=== PATIENT | male | born 1930 | race Caucasian/White ===

== ENCOUNTER 2018-05-09 09:21 | Inpatient (IN) | payer OTHER ==
[2018-05-09] MEDS ORDERED: LACTATED RINGER'S 1,000 ML IV (11:30)
[2018-05-09] MEDS ORDERED: LIDOCAINE 2% (SDV) 5 ML INJ (13:25)
[2018-05-09] MEDS ORDERED: PROPOFOL 20 ML (13:25)
[2018-05-09] MEDS ORDERED: ONDANSETRON 4 MG INJ (13:26)
[2018-05-09] MEDS ORDERED: ONDANSETRON 4 MG INJ IV (13:30)
[2018-05-09] MEDS ORDERED: MIDAZOLAM 1 MG/ML 2 ML INJ IV (13:30)
[2018-05-09] MEDS ORDERED: EPHEDrine SULFATE 50 MG/5 ML SYG IV (13:30)
[2018-05-09] MEDS ORDERED: METOCLOPRAMIDE 10 MG INJ IV (13:30)
[2018-05-09] MEDS ORDERED: MEPERIDINE 25 MG INJ IV (13:30)
[2018-05-09] MEDS ORDERED: OXYCODONE/ACETAMINOPHEN (5/325) TAB PO ×2 (13:30)
[2018-05-09] MEDS ORDERED: LABETALOL HCL 20MG INJ IV (13:30)
[2018-05-09] MEDS ORDERED: HYDROmorphONE 1 MG/5 ML IV SYRINGE IV ×3 (13:30)
[2018-05-09] MEDS ORDERED: FENTAnyl 50 MCG/ML VIAL IV ×2 (13:30)
[2018-05-09] MEDS ORDERED: hydrALAzine 20 MG INJ IV (13:30)
[2018-05-09] MEDS: CIPROFLOXACIN 400MG/D5W 200 ML IVPB (13:39)
[2018-05-09] MEDS ORDERED: FUROSEMIDE 20 MG INJ (14:21)
[2018-05-09] MEDS ORDERED: MAGNESIUM HYDROXIDE 30ML CUP PO (15:30)
[2018-05-09 15:41] LABS: ADD MAN DIFF? NO
[2018-05-09 15:42] LABS: BASOPHILS % 0.2 % (0.0-2.0); EOSINOPHILS # 0.1 10^3/ul (0.0-0.5); EOSINOPHILS % 1.6 % (0.0-7.0); HEMATOCRIT 33.7 % (42.0-52.0); HEMOGLOBIN 10.7 g/dl (14.0-18.0); LYMPHOCYTES # 1.2 10^3/ul (0.8-2.9); LYMPHOCYTES % 27.8 % (15.0-51.0); MEAN CORPUSCULAR HEMOGLOBIN 24.9 pg (29.0-33.0); MEAN CORPUSCULAR HGB CONC 31.8 g/dl (32.0-37.0); MEAN CORPUSCULAR VOLUME 78.6 fl (82.0-101.0); MEAN PLATELET VOLUME 9.2 fl (7.4-10.4); MONOCYTE # 0.2 10^3/ul (0.3-0.9); MONOCYTES % 5.3 % (0.0-11.0); NEUTROPHIL # 2.8 10^3/ul (1.6-7.5); NEUTROPHILS % 64.9 % (39.0-77.0); PLATELET COUNT 173 10^3/UL (140-415); RED BLOOD COUNT 4.29 10^6/ul (4.70-6.10); RED CELL DISTRIBUTION WIDTH 15.9 % (11.5-14.5)
[2018-05-09 15:42] LABS: WHITE BLOOD COUNT 4.3 10^3/ul (4.8-10.8)
[2018-05-09 15:56] LABS: HOLD TRANSMISSIONS 1
[2018-05-09 16:01] LABS: ANION GAP 12 (8-16); BLOOD UREA NITROGEN 10 mg/dl (7-20); CALCIUM 9.7 mg/dl (8.4-10.2); CARBON DIOXIDE 26 mmol/L (21-31); CHLORIDE 107 mmol/L (97-110); CREATININE 0.74 mg/dl (0.61-1.24); GLUCOSE 105 mg/dl (70-220); POTASSIUM 4.4 mmol/L (3.5-5.1); SODIUM 141 mmol/L (135-144)
[2018-05-09] MEDS: FENTAnyl 50 MCG/ML VIAL IV (16:01)
[2018-05-09] MEDS: DIPHENHYDRAMINE 50 MG INJ IV (16:25)
[2018-05-09] MEDS: DIPHENHYDRAMINE 50 MG CAP PO (17:57)
[2018-05-09] MEDS: CIPROFLOXACIN 500 MG TAB PO (17:57)
[2018-05-09] MEDS: morphine 2 MG INJ IV (17:57)
[2018-05-09] MEDS: DEXTROSE 5%-0.45% NACL 1,000 ML IV (17:58)
[2018-05-09] MEDS: TAMSULOSIN (SR) 0.4 MG CAP PO (20:18)
[2018-05-09] MEDS: DOCUSATE SODIUM 100 MG CAP PO (20:19)
[2018-05-09] MEDS: HYDROCODONE/APAP (5/325) TAB PO (20:19)
[2018-05-09] MEDS ORDERED: ACETAMINOPHEN 325 MG TAB (21:39)
[2018-05-09] MEDS: ACETAMINOPHEN 325 MG TAB PO (21:42)
[2018-05-10] MEDS: CIPROFLOXACIN 500 MG TAB PO ×2 (06:21→17:31)
[2018-05-10] MEDS: SOD CHLORIDE 0.9% 1,000 ML IV (06:21)
[2018-05-10 07:35] LABS: ADD MAN DIFF? NO
[2018-05-10 07:38] LABS: BASOPHILS % 0.1 % (0.0-2.0); EOSINOPHILS % 0.1 % (0.0-7.0); HEMATOCRIT 27.9 % (42.0-52.0); HEMOGLOBIN 8.8 g/dl (14.0-18.0); LYMPHOCYTES # 0.8 10^3/ul (0.8-2.9); LYMPHOCYTES % 9.9 % (15.0-51.0); MEAN CORPUSCULAR HEMOGLOBIN 24.8 pg (29.0-33.0); MEAN CORPUSCULAR HGB CONC 31.5 g/dl (32.0-37.0); MEAN CORPUSCULAR VOLUME 78.6 fl (82.0-101.0); MEAN PLATELET VOLUME 9.5 fl (7.4-10.4); MONOCYTE # 0.4 10^3/ul (0.3-0.9); MONOCYTES % 5.5 % (0.0-11.0); NEUTROPHIL # 6.7 10^3/ul (1.6-7.5); PLATELET COUNT 151 10^3/UL (140-415); RED BLOOD COUNT 3.55 10^6/ul (4.70-6.10); RED CELL DISTRIBUTION WIDTH 15.8 % (11.5-14.5)
[2018-05-10 07:57] LABS: IRON 105 ug/dl (35-150)
[2018-05-10 08:00] LABS: ANION GAP 10 (8-16); BLOOD UREA NITROGEN 13 mg/dl (7-20); CALCIUM 8.9 mg/dl (8.4-10.2); CARBON DIOXIDE 29 mmol/L (21-31); CHLORIDE 102 mmol/L (97-110); GLUCOSE 113 mg/dl (70-220); POTASSIUM 3.8 mmol/L (3.5-5.1); SODIUM 137 mmol/L (135-144)
[2018-05-10 08:07] LABS: % IRON SATURATION 28 % SAT (22-52); TOTAL IRON BINDING CAPACITY 378 ug/dl (241-421)
[2018-05-10] MEDS: FUROSEMIDE 20 MG TAB GTB (08:42)
[2018-05-10] MEDS: FINASTERIDE 5 MG TAB GTB (08:42)
[2018-05-10] MEDS: DOCUSATE SODIUM 100 MG CAP PO ×2 (08:42→20:20)
[2018-05-10] MEDS: DEXTROSE 5%-0.45% NACL 1,000 ML IV (08:43)
[2018-05-10 11:58] LABS: ADD UMIC YES; UR ASCORBIC ACID NEGATIVE (NEGATIVE); UR BACTERIA FEW /HPF (NONE SEEN); UR BILIRUBIN (Dip) NEGATIVE (NEGATIVE); UR BLOOD (Dip) 3+ mg/dL (NEGATIVE); UR CLARITY SLIGHTLY CLOUDY (CLEAR); UR COLOR STRAW (YELLOW); UR GLUCOSE (Dip) NEGATIVE (NEGATIVE); UR KETONES (Dip) NEGATIVE (NEGATIVE); UR LEUKOCYTE ESTERASE (Dip) NEGATIVE Leu/ul (NEGATIVE); UR NITRITE (Dip) NEGATIVE (NEGATIVE); UR RBC > 182 /HPF (0-5); UR SPECIFIC GRAVITY (Dip) 1.004 (1.003-1.030); UR TOTAL PROTEIN (Dip) NEGATIVE (NEGATIVE); UR UROBILINOGEN (Dip) NEGATIVE (NEGATIVE); UR WBC 5 /HPF (0-5)
[2018-05-10] MEDS: HYDROCODONE/APAP (5/325) TAB PO ×2 (12:29→18:25)
[2018-05-10 12:31] LABS: HEMATOCRIT 29.6 % (42.0-52.0); HEMOGLOBIN 9.3 g/dl (14.0-18.0)
[2018-05-10] MEDS: TAMSULOSIN (SR) 0.4 MG CAP PO (20:20)
[2018-05-11] MEDS: HYDROCODONE/APAP (5/325) TAB PO ×3 (00:40→17:50)
[2018-05-11] MEDS: CIPROFLOXACIN 500 MG TAB PO ×2 (05:34→17:39)
[2018-05-11] MEDS: DEXTROSE 5%-0.45% NACL 1,000 ML IV ×2 (05:34→07:03)
[2018-05-11 07:14] LABS: ADD MAN DIFF? NO
[2018-05-11 07:20] LABS: BASOPHILS % 0.1 % (0.0-2.0); EOSINOPHILS # 0.1 10^3/ul (0.0-0.5); HEMATOCRIT 28.1 % (42.0-52.0); HEMOGLOBIN 8.9 g/dl (14.0-18.0); LYMPHOCYTES # 1.1 10^3/ul (0.8-2.9); LYMPHOCYTES % 13.2 % (15.0-51.0); MEAN CORPUSCULAR HEMOGLOBIN 24.7 pg (29.0-33.0); MEAN CORPUSCULAR HGB CONC 31.7 g/dl (32.0-37.0); MEAN CORPUSCULAR VOLUME 77.8 fl (82.0-101.0); MEAN PLATELET VOLUME 10.6 fl (7.4-10.4); MONOCYTE # 0.5 10^3/ul (0.3-0.9); MONOCYTES % 6.1 % (0.0-11.0); NEUTROPHIL # 6.7 10^3/ul (1.6-7.5); NEUTROPHILS % 79.4 % (39.0-77.0); PLATELET COUNT 149 10^3/UL (140-415); RED BLOOD COUNT 3.61 10^6/ul (4.70-6.10); RED CELL DISTRIBUTION WIDTH 15.9 % (11.5-14.5)
[2018-05-11 07:20] LABS: WHITE BLOOD COUNT 8.4 10^3/ul (4.8-10.8)
[2018-05-11 07:55] LABS: ANION GAP 10 (8-16); BLOOD UREA NITROGEN 9 mg/dl (7-20); CARBON DIOXIDE 30 mmol/L (21-31); CHLORIDE 100 mmol/L (97-110); CREATININE 0.67 mg/dl (0.61-1.24); GLUCOSE 98 mg/dl (70-220); MAGNESIUM 1.8 mg/dl (1.7-2.5); PHOSPHORUS 2.7 mg/dl (2.5-4.9); POTASSIUM 3.6 mmol/L (3.5-5.1); SODIUM 136 mmol/L (135-144)
[2018-05-11] MEDS: DOCUSATE SODIUM 100 MG CAP PO (08:46)
[2018-05-11] MEDS: FUROSEMIDE 20 MG TAB GTB (08:47)
[2018-05-11] MEDS: FINASTERIDE 5 MG TAB GTB (08:47)
== END 2018-05-11 18:45 | disposition home or self-care (01) | DRG 714 ==
LOC: SDS 09:21 → REC 16:59 → PP2 17:00
PROC: 0VT08ZZ Resection of Prostate, Via Natural or Artificial Opening Endoscopic (ICD-10-PCS; principal; 2018-05-09 12:00)
DX: N40.1 Benign prostatic hyperplasia with lower urinary tract symptoms (principal); R33.8 Other retention of urine; D64.9 Anemia, unspecified; R82.71 Bacteriuria
CPT/HCPCS: 80048; 81001; 83036; 83540; 83735; 84100; 85014; 85018; 85025; 87040; 87086; 88305; 99217; G0378